=== PATIENT | male | born 1990 | race Caucasian/White ===

== ENCOUNTER 2020-05-11 22:27 | Emergency (ER) | payer SELFPAY ==
[~2020-05-11] VITALS: Ht 177.8 cm; Wt 78.5 kg
--- NOTE | 2020-05-11 22:47 | NUR ---
Dr. Cano at bedside for MSE.
--- NOTE | 2020-05-11 22:59 | NUR ---
Pt out of ER for CT.
[2020-05-11] MEDS ORDERED: IV NORMAL SALINE 1000 ML BAG IV ONE (23:00)
--- NOTE | 2020-05-11 23:14 | NUR ---
Pt back to ER from CT.
[2020-05-11 23:48] LABS: BASOPHILS % (AUTO) 0.2 % (0.0-2.0); EOSINOPHILS % (AUTO) 0.1 % (0.0-7.0); HEMATOCRIT 41.9 % (36.7-47.1); HEMOGLOBIN 14.5 g/dL (12.5-16.3); LYMPHOCYTES # (AUTO) 0.6 K/uL (20.0-40.0); MEAN CORPUSCULAR HGB CONC 35 g/dL (32.5-36.3); MONOCYTES # (AUTO) 1.1 K/uL (2.0-10.0); MONOCYTES % (AUTO) 10.9 % (0.0-11.0); NEUTROPHILS # (AUTO) 8.4 K/uL (1.8-8.9); NEUTROPHILS % (AUTO) 82.8 % (38.5-71.5); PLATELET COUNT (AUTO) 155 K/uL (152-348); RED BLOOD CELL COUNT(AUTO) 4.99 MIL/uL (4.06-5.63); WHITE BLOOD COUNT (AUTO) 10.1 K/uL (3.6-10.2)
[2020-05-11 23:54] LABS: CARBON DIOXIDE 29 mmol/L (21-32); CHLORIDE 101 mmol/L (98-107); CREATININE 1.1 mg/dL (0.6-1.3); GLUCOSE 117 mg/dL (74-106); POTASSIUM 3.5 mmol/L (3.5-5.1); UREA NITROGEN, BLOOD 18 mg/dL (7-18)
--- NOTE | 2020-05-11 23:55 | NUR ---
Patient provided urine sample, sent to lab.
[2020-05-12 00:08] LABS: ALANINE AMINOTRANSFERASE 512 U/L (16-63); ALKALINE PHOSPHATASE 86 U/L (50-136); ASPARTATE AMINOTRANSFERASE 415 U/L (15-37); BILIRUBIN,DIRECT 0.4 mg/dL (0.0-0.2); TOTAL PROTEIN, SERUM 7.3 g/dL (6.4-8.2)
[2020-05-12 00:12] LABS: ACETAMINOPHEN < 2.0 ug/mL (10-30)
[2020-05-12 00:14] LABS: ETHANOL < 3 MG/DL (0-0)
[2020-05-12 00:17] LABS: *AMPHETAMINE, URINE POSITIVE (NEGATIVE); *CANNABINOID, URINE NEGATIVE (NEGATIVE); *COCCAINE, URINE POSITIVE (NEGATIVE); *OPIATE, URINE POSITIVE (NEGATIVE); *PHENCYCLIDINE SCREEN,URINE NEGATIVE (NEGATIVE)
--- NOTE | 2020-05-12 03:14 | NUR ---
Patient called sober living, does not look like patient will be allowed back into facility, patient attempting to call any friends or family that can take him, otherwise, essentially homeless.
--- NOTE | 2020-05-12 03:53 | NUR ---
Patient given written and verbal discharge instructions. Patient verbalizes understanding of instructions. Patient is ambulatory with steady gait. Refuses offer of skilled nursing placement. Patient given list of available shelters in surrounding area. Patient provided taxi voucher. Provided with clothing. VSS, no acute signs of distress, all belongings taken, provided copies of labs and xray and ct results.
[2020-05-12 04:03] VITALS: BP 128/63
== END 2020-05-12 04:04 | disposition home or self-care (01) ==
LOC: ER 22:32
DX: T40.411A Poisoning by fentanyl or fentanyl analogs, accidental (unintentional), initial encounter (principal); R41.0 Disorientation, unspecified; F15.10 Other stimulant abuse, uncomplicated; F14.10 Cocaine abuse, uncomplicated; Y92.488 Other paved roadways as the place of occurrence of the external cause; F19.10 Other psychoactive substance abuse, uncomplicated; Z59.0 Homelessness; S00.83XA Contusion of other part of head, initial encounter; X58.XXXA Exposure to other specified factors, initial encounter
CPT/HCPCS: 36415; 70450; 71045; 85025; 93005; A4663; G0480

== ENCOUNTER 2020-08-01 16:14 | Emergency (ER) | payer SELFPAY ==
[~2020-08-01] VITALS: Ht 177.8 cm; Wt 77.1 kg
--- NOTE | 2020-08-01 16:28 | NUR ---
Dr Baez at the bedside for MSE.
--- NOTE | 2020-08-01 17:28 | NUR ---
Crutches dispensed. Pt instructed on proper use of crutches. Patient able to demonstrate correct use of crutches.
[2020-08-01 17:32] VITALS: BP 121/55
--- NOTE | 2020-08-01 17:58 | NUR ---
Patient discharged to home in stable condition. Written and verbal after care instructions given. Patient verbalizes understanding of instructions. Stressed follow up or return to ER for worsening s/s.
== END 2020-08-01 17:58 | disposition home or self-care (01) ==
LOC: ER 16:14
DX: S92.902A Unspecified fracture of left foot, initial encounter for closed fracture (principal); S05.92XA Unspecified injury of left eye and orbit, initial encounter; W13.8XXA Fall from, out of or through other building or structure, initial encounter; Y93.02 Activity, running; Y92.89 Other specified places as the place of occurrence of the external cause; Z59.0 Homelessness
CPT/HCPCS: 73630; A4663